=== PATIENT | female | born 1950 | race Caucasian/White ===

== ENCOUNTER → 2018-04-29 13:05 | Outpatient (CLI) | payer OTHER, SELFPAY ==
--- NOTE | 2018-04-29 | DI.CT.S_ITS ---
PROCEDURE: CT UE LT WO CON INDICATIONS: PRIMARY OSTEOARTHRITIS OF LEFT SHOULDER TECHNIQUE: Noncontrast 1-1.5 mm thick sections acquired from the acromioclavicular joint to the inferior scapula, with coronal and sagittal reformatting. COMPARISON: [facility], CR, XR SHOULDER 2+ VIEWS LEFT, 03/08/2018, 15:09. FINDINGS: Image quality: Excellent. Bones: Examination of left shoulder shows moderate acromioclavicular joint osteoarthritis with joint space narrowing, subchondral sclerosis and cyst formation. Moderate to severe osteophytic changes also noted involving glenohumeral joint with joint space narrowing, subchondral sclerosis and cyst formation, and prominent inferior marginal osteophyte formation. There is no acute fracture or dislocation. No gross lytic or blastic bony lesion. Left clavicle and left scapula are grossly intact. The visualized left ribs are intact. Soft tissues: There is suggestion of small to moderate joint effusion. No gross full-thickness rotator cuff tendon rupture. No suspicious soft tissue calcification. The visualized left lung field is clear. IMPRESSION: 1. Moderate to severe glenohumeral joint osteoarthritis and mild to moderate acromioclavicular joint osteoarthritis. No fracture or dislocation. No suspicious bony lesion. 2. Small to moderate glenohumeral joint effusion. No gross full-thickness rotator cuff tendon rupture. Dictated by: Lex Rodrigez M.D. on 04/29/2018 at 14:57 Approved by: Lex Rodrigez M.D. on 04/29/2018 at 14:59
== END ==
PROVIDERS: PCP Internal Medicine; Visit Provider Orthopaedic Surgery
DX: M19.012 Primary osteoarthritis, left shoulder (principal)
CPT/HCPCS: 73200

== ENCOUNTER → 2019-04-21 16:48 | Outpatient (CLI) | payer OTHER, SELFPAY ==
[2019-04-21 17:24] LABS: Bacteria Urine None Seen; WBC Urine None Seen (0-5/HPF)
[2019-04-21 17:57] LABS: Hematocrit 41.6 % (36-46); Mean Corpuscular HGB Conc 33.6 % (30-36); Platelet Count 377 X10^3/uL (150-400); Red Blood Cell Count 4.52 X10^6/uL (4.0-5.2); Red Cell Distribution Width 12.9 % (11.6-14.8); White Blood Cell Count 8.9 X10^3/uL (4.5-11.0)
[2019-04-21 18:01] LABS: Hemoglobin A1C% w Est Avg Glu 5.4 % (4.0-6.0)
[2019-04-21 18:07] LABS: BUN Creatinine Ratio 17.5 (6-22); Blood Urea Nitrogen 14 mg/dL (7-17); Carbon Dioxide 27 mmol/L (22-32); Chloride 102 mmol/L (98-107); Estimated Glomerular Filt Rate > 60.0 mL/min (>60); Glucose 87 mg/dL (80-110); HEMOLYSIS < 15 (0-50); Potassium 4.1 mmol/L (3.4-5.1); Sodium 138 mmol/L (137-145)
[2019-04-21 18:12] LABS: Transferrin 256 mg/dL (206-381)
[2019-04-21 18:26] LABS: Appearance Urine UA CLEAR; Bilirubin Urine UA NEGATIVE (NEGATIVE); Color Urine UA YELLOW; Glucose Urine UA NEGATIVE (Negative); Ketones Urine UA NEGATIVE (NEGATIVE); Leukocyte Esterase Urine UA NEGATIVE (NEGATIVE); Nitrite Urine UA NEGATIVE (Negative); Occult Blood Urine UA TRACE-LYSED (Negative); Protein Urine UA NEGATIVE (Negative); Specific Gravity Urine UA <=1.005 (1.000-1.035); Urobilinogen Urine UA 0.2 E.U./dL (0.2)
[2019-04-21 18:44] LABS: Culture Indicated Urine Cult Not Indicated; RBC Urine 0-1/HPF (0-5/HPF); Squamous Epithelial Cell Urine 0-1 /HPF (0-5/HPF)
== END ==
PROVIDERS: PCP Internal Medicine; Visit Provider Orthopaedic Surgery
DX: Z01.818 Encounter for other preprocedural examination (principal); E61.1 Iron deficiency; N39.0 Urinary tract infection, site not specified; R73.9 Hyperglycemia, unspecified
CPT/HCPCS: 36415; 80048; 81001; 83036; 84466; 85027; 93005

== ENCOUNTER 2019-05-22 06:23 | Inpatient (IN) | payer OTHER, SELFPAY ==
[2019-05-08 09:52] VITALS: BMI 22.9
[2019-05-22] VITALS (21 sets, daily range): BP systolic 104–166; BP diastolic 70–99; PULSE 70–102; RESP 14–20; TEMP 35.9–36.9; O2SAT 92–100; BMI 22.9
[2019-05-22] MEDS: PREGABALIN 75 MG CAPSULE PO (07:09)
[2019-05-22] MEDS: CELECOXIB 200 MG CAPSULE PO (07:09)
[2019-05-22] MEDS: ACETAMINOPHEN 325 MG TABLET 975 MG PO ×3 (07:09→20:18)
[2019-05-22] MEDS: LACTATED RINGERS 1,000 ML 42 ML IV (07:20)
--- NOTE | 2019-05-22 07:52 | PM.PREOP ---
Pre-operative Note Interval Note History & Physical reviewed/Exam performed by Physician: Yes Changes to H&P: No
--- NOTE | 2019-05-22 07:52 | PM.OP.1 ---
Operative Date/Time/Diagnoses Date of procedure: 05/22/19 Time of procedure: 10:00 Pre-op diagnosis: Left shoulder osteoarthritis Post-op diagnosis: same Procedure & Clinicians Procedure: Left total shoulder Same procedure as scheduled: Yes Indications: The patient has had progressively worsening left shoulder pain with radiographic changes consistent with arthritis. Non-operative management has failed and the patient has requested total shoulder replacement. The risks, benefits and alternatives to surgery were discussed with the patient prior to proceeding. Risks discussed included, but were not limited to, failure to relieve pain, stiffness, infection, nerve damage, deep venous thrombosis, pulmonary embolism, stroke, coma, heart attack, permanent paralysis and , as well as the potential need for eventual revision of the prosthetic. Surgeon: Ye Epps Insurance Case Manager: Carrol Sebastian Click Yes if Unassisted: No Anesthesia Type: General, Peripheral nerve block and Local Operative Notes Findings: Severe osteoarthritis with loose bodies and a large osteophyte on the humerus. Closure Type: primary Specimen(s): none sent Prosthetic devices, grafts, tissues, transplants, or devices: Implants used in this procedure were manufactured by the [employer] and included an Altivate short stem total shoulder system with a size 12 stem, a neutral neck and a 46 mm x 18 mm humeral head. In addition there was a 46 mm all polyethylene E plus pegged glenoid. Applied: implant(s) Estimated Blood Loss (mL): 150 Blood products transfused: none Procedure in detail: The patient was seen in the pre-operative area, where the patient identified the left shoulder as the operative site and this was marked with my initials. The patient received pre-operative antibiotics, underwent an interscalene block, and was taken to the operating room and placed on the operative table in the supine position. After satisfactory anesthesia, a full ?time out? was performed. The patient was repositioned in the ?beach chair? position using a dedicated positioner. All pressure points were well padded, and the knees were slightly bent to prevent tension on the sciatic nerves. The left arm was prepared from the fingers to the base of the neck with ChloroPrep in the usual fashion and draped through sterile drapes. An approximately 15 cm incision was created, starting at the clavicle above the coracoid process and extended towards the deltoid insertion. The deltopectoral interval was used to access the shoulder. The cephalic vein was taken medially. A self retaining retractor was placed. The upper centimeter of the pectoralis major tendon was released. The ?three sisters? were identified and cauterized. The axillary nerve was palpated and protected throughout the case. The biceps was released from its groove and tenodesed over the top of the pectoralis major tendon. The subscapularis was released from the lesser tuberosity with a subscapularis peel and tagged for later repair. The shoulder was dislocated and a cutting guide was used for the proximal humeral osteotomy in 30 degrees of retroversion. A starter Reamer was used followed by the cylindrical reamers. This continued in larger sizes in till cortical bite was achieved. Sequential broaching was then performed until a line to line fit with the Reamer occurred. A proximal humeral protector was then placed. We then removed the self-retaining retractor and placed retractors to access the glenoid. The subscapularis was released with a ?360 degree release? with care being taken to protect the axillary nerve with the inferior portion of this procedure. The remnant of labrum and biceps stump were removed. The appropriate size reamer was chosen with the glenoid sizer, and the guide pin placed. The glenoid was appropriately reamed. The guide for the peripheral holes was used and the center hole enlarged. The trial glenoid was placed with good stability. We then cemented the final implant into place after irrigating the peg holes and drying them with thrombin-soaked Gelfoam. We returned our attention to the humerus, a trial humeral head was applied and a trial reduction performed. Stability was checked with 50% posterior translation with spontaneous reduction, 45? external rotation at the side with the subscapularis held on the repaired position and 70? of internal rotation in the ?scarecrow position?. This was felt to be satisfactory and the appropriate implants were opened. Five holes were drilled along the humeral osteotomy and #2 Ethibond sutures placed for eventual subscapularis repair. The humeral prosthetic was impacted into the humerus. The humeral head was applied when the stem was still slightly proud and impacted to both seat the head and fully seat the stem. The joint was relocated one final time. The joint was irrigated and the subscapularis repaired to the previously placed sutures using Talat-Panda sutures. The top of the subscapularis was closed to the leading edge of the supraspinatus with a figure of 8 #2 TiCron to close the rotator interval. A deep drain was placed and brought out supero-laterally. The deltopectoral interval was closed with interrupted 0 Vicryl. The subcutaneous layer was closed with 3-0 Vicryl, and the skin with a running 3-0 V-Lock suture and SteriStrips. An Aquacel Ag dressing was applied, the patient?s arm was placed in a sling, and the patient was taken to recovery having tolerated the procedure well. Complications: none Post-operative Condition: stable Disposition: PACU Plan for aftercare: The patient will be maintained on a standard total shoulder replacement protocol with passive range of motion limited to 90 degrees forward flexion, 0 degrees external rotation at the side, 0 degrees abduction and internal rotation to the body. The patient will receive aspirin and sequential compression devices for DVT prophylaxis. The patient will be discharged home when safe for the home environment, likely tomorrow.
[2019-05-22] MEDS: MIDAZOLAM 2 MG/2 ML VIAL IV (07:54)
[2019-05-22] MEDS: fentaNYL 100 MCG/2 ML INJ 50 MCG IV (07:55)
[2019-05-22] MEDS: CEFAZOLIN 2 GM/100 ML FROZ.PIGGY IV (08:07)
[2019-05-22] MEDS: TRANEXAMIC ACID 1,000 MG VIAL 1000 MG INJ ×2 (08:20→09:38)
--- NOTE | 2019-05-22 08:20 | SUR.PREOP ---
Block start time 0754. Monitoring initiated and maintained throughout procedure. Oxygen and medications given per anesthesiologist instructions. Patient remained stable throughout procedure, no adverse reactions noted. Block end time 0803.
--- NOTE | 2019-05-22 08:38 | SUR.OPER ---
Beach chair with Schlein shoulder positioner. Lower body on padded OR bed. Head in foam padded head cradle, secured with straps. Non-operative arm secured <90 degrees abduction. Pillow under knees. Safety belt at thigh. Cloth tape over blanket over lower legs.
[2019-05-22] MEDS: THROMBIN (RECOMBINANT) 5,000 UNIT VIAL 5000 UNIT TOP (08:45)
[2019-05-22] MEDS: BUPIVACAINE 0.5% W/ EPI (PF) VIAL 30 ML INJ (08:45)
--- NOTE | 2019-05-22 10:15 | DI.RAD.S_ITS ---
PROCEDURE: XR SHOULDER LT 1V INDICATIONS: post op total shoulder TECHNIQUE: One views of the shoulder were acquired. COMPARISON: Left shoulder radiographs 03/01/2019, and left shoulder CT 04/29/2018. FINDINGS: Post left shoulder arthroplasty which is in the expected location. No fracture. Mild acromioclavicular joint degenerative change. Postoperative soft tissue gas. IMPRESSION: Satisfactory appearance of the new left shoulder arthroplasty. Dictated by: David Talavera M.D. on 05/22/2019 at 11:24 Approved by: David Talavera M.D. on 05/22/2019 at 11:26
[2019-05-22] MEDS: LACTATED RINGERS 1,000 ML 125 ML IV (13:16)
[2019-05-22] MEDS: OXYCODONE IR 10 MG TABLET PO ×3 (13:36→20:03)
--- NOTE | 2019-05-22 17:33 | PT.IIE ---
Current Diagnoses Primary osteoarthritis, right shoulder (05/22/19) Surgery Performed Operation Date: 05/22/19 07:45 Actual Procedures p Total Shoulder Arthroplasty(Left) - Ye Epps MD Surgical History (Last Updated 05/08/19 @ 10:04 by Saloni Kearney, RN) History of arthroplasty of right shoulder (Acute 07/29/15) History of total right hip arthroplasty (Acute ~08/2018) Hx of reduction mammoplasty (Acute) Hx of vein stripping (Acute) Medical History (Last Updated 05/08/19 @ 09:59 by Saloni Kearney RN) Depression (Acute) Headache (Acute) Hx of ectopic (Acute) IBS (irritable colon syndrome) (Acute) Mood disorder (Acute) PTSD (post-traumatic stress disorder) (Acute) Physical Therapy Inpatient Evaluation/Re-Eval M1 PT/OT-IP Prior Functional Status Start: 05/22/19 14:36 Freq: NEEDED Status: Active Protocol: Document 05/22/19 17:17 AW (Rec: 05/22/19 17:33 AW [email or web address]) Medical Review Prior Functional Status Medical History Reviewed Yes Diet/Fluid Consistency Mechanical Soft Communication Able to make needs known Mobility and Gait Independent without assistive device Activities of Daily Living and IADL's Independent Social History Household Members none Living Arrangements House Number of Floors (Floors) Two Floors Number of Stairs To Enter/Railing? 1 [place]ARLEY with no rail. 14 steps to second level with R railing ascending Home Environment Standard Height Toilet,Walk in Shower,Built-In Shower Seat Home Equipment Grab Bars In Shower Employment Status Retired M2 PT-IP Current Condition Start: 05/22/19 14:36 Freq: NEEDED Status: Active Protocol: Document 05/22/19 17:17 AW (Rec: 05/22/19 17:33 AW [email or web address]) Physical Therapy Current Condition Current Condition Evaluation Date 05/22/19 Treatment Diagnosis s/p left TSA; decreased independence with ADL's Onset Date 05/22/19 Precautions Shoulder Precautions Sling,PROM,Internal Rotation to Body,No External Rotation, No Abduction,Forward Flexion to 90 degrees,Pendulums Weight Bearing Status Weight Bearing Status Full Weight Bearing M3 PT-IP Subjective Start: 05/22/19 14:36 Freq: NEEDED Status: Active Protocol: Document 05/22/19 17:17 AW (Rec: 05/22/19 17:33 AW [email or web address]) Subjective Physical Therapy Visit Type Type Initial Evaluation Visit Start Time 14:42 Visit Stop Time 15:21 Total Visit Minutes 39 Number of INVESTIGATIONS CHIEF Visits 0 Physical Therapy Visit Comments Patient Comments Pt has been up to bathroom several times but is willing to work with therapy Patient Goals Pt hopes to discharge directly to home. Therapy Pain Assessment Pain When Pain Assessed During Mobility Pain Present Pain Present Denied Pain M4 PT-IP Mobility and Gait Start: 05/22/19 14:36 Freq: NEEDED Status: Active Protocol: Document 05/22/19 17:17 AW (Rec: 05/22/19 17:33 AW [email or web address]) PT-Bed Mobility Assessment Supine to Sit Supine to Sit Standby Assistance Sit to Supine Sit to Supine Standby Assistance Scooting Scooting to Edge of Bed Standby Assistance Scooting Up and Down in Bed Standby Assistance PT-Transfer Assessment Sit to and From Stand Sit to and from Stand Standby Assistance Equipment Transfer Assistive Device Gait Belt Orthotic/Prosthetic Devices or Brace: Yes Transfers Transfer Destination Bed Transfer Technique pt ambulated without assistive device Transfer Ability Level of Assist Standby Assistance Comments Mobility Comments Pt required occasional cues to avoid shoulder elevation, but otherwise required no more than SBA for all mobility. Gait Assessment Gait Gait Assistance Required: Standby Assistance Distance (Feet) 250 Able to Maintain Weight Bearing Status Yes During Gait Assistive Devices Assistive Device Gait Belt Orthotic/Prosthetic Devices or Brace: Yes Gait Deviations General Gait Pattern Decreased Stride Length, Decreased Feet Clearance Factors Limiting Gait Function Factors Limiting Gait Function Decreased Activity Tolerance Comments Gait Comments Pt ambulated ~250 feet without AD SBA. She was able to turn and nod her head, appropriately identify and navigate obstacles, and generally demonstrated good safety awareness. Stair Climbing Assessment Evaluation Level of Assist On Stairs Standby Assistance Devices Stair Climbing Assistive Devices Right Railing Technique/Endurance Stair Climbing Direction Ascend and Descend Stair Climbing Technique Step Over Step Number of Steps Climbed 3 Query Text: Stair Climbing Set # Repetitions (reps) 3 Comments Stair Climbing Comments Pt practiced descending with both step-to and step-over- step pattern. She was safe with both, requiring no more than SBA PT-Balance Assessment Sitting Balance and Reactions Static Sitting Balance Ability Normal Dynamic Sitting Balance Ability Normal Standing Balance and Reactions Static Standing Balance Ability Normal Dynamic Standing Balance Ability Normal Device Used none M5 PT-IP Objective Assessments Start: 05/22/19 14:36 Freq: NEEDED Status: Active Protocol: Document 05/22/19 17:17 AW (Rec: 05/22/19 17:33 AW [email or web address]) Orientation Orientation/Cognition Level of Alertness Alert Orientation Name,Day of Week,Place, Situation Language Function Ability No Deficits Noted Safety Awareness Understands Safety Issues Memory Description No Deficits Noted Comments Pt slightly groggy at time of evaluation from anesthesia but able to attend to task. Gross Range of Motion Upper Extremity ROM Assessment Left Impaired Lower Extremity ROM Assessment Within Functional Limits Strength Upper Extremity Strength Assessment Left Impaired Lower Extremity Strength Assessment Within Functional Limits Comments Strength Comments BLE grossly 5/5 Coordination Assessment Gross Coordination Gross Coordination WNL Sensation Assessment Sensation Gross Sensation Left UE Impaired Light Touch Impaired Comments Sensation Comments Pt with dull light touch sensation of LUE. Pt reported increased tingling with mobility. M6 PT-IP Treatment Start: 05/22/19 14:36 Freq: NEEDED Status: Active Protocol: Document 05/22/19 17:17 AW (Rec: 05/22/19 17:33 AW [email or web address]) Physical Therapy Treatment Education Education Provided Precautions,Weight Bearing Status,Post-Op Packet,Safety Brace Education [place],Patient Other Treatments Other Treatment Performed Pt educated on proper fit of shoulder sling using mirror for visual feedback. Pt able to adjust sling for comfort. PT demonstrated elbow, wrist, and hand ROM as well as pendulums but did not feel it safe for pt to practice due to poor awareness of/sensation in LUE. Will demonstrate and practice at next session. M7 PT-IP Assessment and Plan Start: 05/22/19 14:36 Freq: NEEDED Status: Active Protocol: Document 05/22/19 17:17 AW (Rec: 05/22/19 17:33 AW [email or web address]) PT Summary Assessment and Plan Potential Rehabilitation Potential Excellent Status of Condition at Evaluation Evolving Summary Impairments Pain,ROM,Strength,Sensation, Bed Mobility,Transfers,Gait, Activity Tolerance Assessment Summary Pt is an active 68 yo woman with history of right TSA who was seen on POD0 following left TSA. PLOF: Pt was independent in all regards. CLOF: Pt required SBA for all mobilities and verbal/tactile cues to avoid shoulder elevation. She will benefit from further PT to review shoulder precautions, sling management, and ROM exercises. PT recommends discharge to home with outpatient PT when medically cleared. Goals Bed Mobility Goal Independent Transfer Goal Independent Gait Goal Independent Gait Distance 300 Other Goals - up/down 1 step without railing - up/down 14 steps with R rail ascending Days to Meet Goals 1 Frequency of Treatment Frequency Of Treatment Twice a Day Treatment Plan Physical Therapy Treatment Plan Bed Mobility Training,Transfer Training,Gait Training, Therapeutic Exercise,Balance Retraining,Post Op Education, Discharge Planning,Hot or Cold Pack,Neuromuscular Re-ed, Coordination Retraining,Manual Therapy Other Recommendations and Next Treatment review shoulder precautions, Focus sling management, and ROM exercises Recommendations To Nursing Amount of Assist Needed Standby Assistance Discharge Recommendations PT Discharge Recommendations Home,Outpatient PT
[2019-05-22] MEDS: HYDROMORPHONE 0.5 MG INJ IV (18:46)
[2019-05-22] MEDS: ONDANSETRON 4 MG ODT PO (20:03)
[2019-05-22] MEDS: ASPIRIN EC 81 MG TABLET PO (20:10)
[2019-05-22] MEDS: DOCUSATE 100 MG CAPSULE PO (20:18)
[2019-05-22] MEDS: lamoTRIgine 100 MG TABLET 200 MG PO (20:21)
[2019-05-23 00:40] VITALS: BP 145/87; PULSE 72; RESP 16; TEMP 36.9; O2SAT 96
[2019-05-23] MEDS: OXYCODONE IR 10 MG TABLET PO ×4 (01:06→14:40)
--- NOTE | 2019-05-23 02:37 | PC.NURSE ---
Addendum entered by Satnam He R.N. 05/23/19 05:48: 0545: Pt having occasional nausea with vomiting. Unable to medicate her with Oxycodone due to nausea. Medicated for pain with Dilaudid 0.5mg IV at 0525. Original Note: Staff Auditor Note: 0030: Awake, assisted up to bathroom with sba. Steady on her feet. IV in place in rt wrist. Dressing to lt shoulder cdi; arm sling in place. Fresh ice to lt shoulder. Vital signs stable.
[2019-05-23] MEDS: HYDROMORPHONE 0.5 MG INJ IV ×2 (03:25→05:25)
[2019-05-23] MEDS: ZOLPIDEM 5 MG TABLET 10 MG PO (03:25)
[2019-05-23] MEDS: ONDANSETRON 4 MG ODT PO ×3 (03:25→11:23)
[2019-05-23 04:15] VITALS: BP 146/89; PULSE 73; RESP 16; TEMP 36.8; O2SAT 96
[2019-05-23] MEDS: LACTATED RINGERS 1,000 ML 125 ML IV (05:06)
[2019-05-23] MEDS: ONDANSETRON 4 MG/2 ML INJ IV (05:07)
[2019-05-23 05:45] LABS: Hematocrit 35.7 % (36-46); Hemoglobin 12.1 g/dL (12.0-16.0); Mean Corpuscular HGB Conc 33.9 % (30-36); Mean Corpuscular Hemoglobin 30.9 PG (26-34); Mean Corpuscular Volume 91.4 fL (80-100); Platelet Count 311 X10^3/uL (150-400); Red Blood Cell Count 3.91 X10^6/uL (4.0-5.2); Red Cell Distribution Width 13.1 % (11.6-14.8); White Blood Cell Count 16.9 X10^3/uL (4.5-11.0)
--- NOTE | 2019-05-23 07:42 | PM.DS.1 ---
History of Present Illness History of Present Illness Date Patient Seen: 05/23/19 Time Patient Seen: 07:42 Chief complaint: 20631 Left Total Shoulder Arthroplasty Narrative: History and physical are contained in the chart in a previously completed note. Please refer to that note for this information. Discharge Providers Provider Date of admission: 05/22/19 06:23 Discharge Date: 05/23/19 Primary care physician: Gigi Whiting MD Consults: 05/22/19 12:08 Consult to Discharge Planning Routine Comment: Consult to Physical Therapy Evaluate & Treat Comment: pendulums, PROM 0 ER, 90 FF, IR to body, 0 abd Physician Instructions: Evaluate and Treat Discharge provider: Ye Epps MD Summary Hospital Course Discharge Diagnosis: 1. Left shoulder osteoarthritis 2. Mild post hemorrhagic anemia Hospital Course: The patient was admitted to the hospital and taken directly to the operating room on May 22, 2019. She underwent a left total shoulder replacement without complications. On postoperative day 1 she was stable and ready for discharge home. Status at Discharge Cognitive/behavioral status at discharge: oriented Functional status at discharge: independent ambulation Overall status at discharge: patient is progressing back to baseline Time Spent with Patient Time spent: Less than 30 minutes Exam Vital Signs (past 8 hours): - 05/23/19 00:40 05/23/19 04:15 Temperature 98.5 F 98.2 F Pulse Rate 72 73 Respiratory Rate 16 16 Blood Pressure 145/87 H 146/89 H Pulse Oximetry 96 96 Oxygen Delivery Method Room Air Oxygen Flow Rate 0 Narrative Exam Narrative: Left shoulder wound is dressed with no drainage on the bandage. Light touch is intact in the radial, ulnar, median, muscular cutaneous and axillary nerve distribution. She can extend her thumb, abduct her thumb, abduct her fingers and can fire her biceps and deltoid. Objective Labs Result Diagrams: 05/23/19 05:15 Labs: Laboratory Results - last 24 hr 05/23/19 05:15 WBC 16.9 H RBC 3.91 L Hgb 12.1 Hct 35.7 L MCV 91.4 MCH 30.9 MCHC 33.9 RDW 13.1 Plt Count 311 Discharge Plan Discharge Plan Patient Disposition: Home Discharge Med Rec/Prescriptions Prescriptions: New acetaminophen 325 mg Tablet 975 mg PO TID 30 Days Qty: 270 RF: 0 aspirin 81 mg Tablet,Delayed Release (Dr/Ec) 81 mg PO BID 42 Days Qty: 84 RF: 0 ondansetron 4 mg Tablet,Disintegrating 4 mg PO Q4HR PRN (Reason: Nausea And Vomiting) Qty: 10 RF: 0 oxycodone 5 mg Tablet 5 mg PO Q4HR Qty: 40 RF: 0 Continued meloxicam 15 mg tablet 15 mg PO DAILY RF: 0 alprazolam [Xanax] 0.25 mg tablet 0.5 mg PO BID-TID PRN (Reason: Anxiety) RF: 0 estradiol 2 mg tablet 2 mg PO DAILY RF: 0 progesterone micronized 100 mg capsule 100 mg PO QAM RF: 0 cyclobenzaprine 10 mg tablet 5 mg PO TID PRN (Reason: Muscle Spasm) RF: 0 zolpidem 10 mg tablet 10 mg PO BEDTIME PRN (Reason: Sleep) RF: 0 bupropion HCl 300 mg tablet extended release 24 hr 300 mg PO QDAY Qty: 90 RF: 3 bupropion HCl [Wellbutrin XL] 150 mg tablet extended release 24 hr 150 mg PO QDAY Qty: 90 RF: 3 lamotrigine 200 mg tablet 200 mg PO BID RF: 0 Discontinued hydrocodone-acetaminophen [Vicodin] 5-300 mg tablet 1 - 2 tab PO Q6HP PRN (Reason: Pain) Qty: 0 RF: 0 Follow up/Referrals: Gigi Whiting MD [Primary Care Provider] - Ye Epps MD [Physician] - 2 Weeks Provider Discharge Instructions Diet: Diet as Tolerated and Regular Activity: You may use your left hand in front of your body below shoulder level. Lift no more than 1 lb with the left arm. Cold/Heat Therapy: Apply ice to the left shoulder for 15 minutes every hour as needed for pain control. Skin/Wound/Dressing Care Report to your healthcare provider any signs of infection, such as:: chills, fever, night sweats, increased pain, unusual drainage and unusual redness Dressing: You may shower with the dressing in place. Leave the dressing in place until your postoperative follow-up. If the central strip of the dressing becomes saturated with either water or blood, please call the office to have it changed. Visit Report/Discharge Packet Instructions: DI for Shoulder Replacement Stand Alone Forms: Surgery Discharge Discharge Data Primary Care Provider: Gigi Whiting V Quality VTE Deep Vein Thrombosis/Pulmonary Embolism Present on Admission: No
[2019-05-23] MEDS: ACETAMINOPHEN 325 MG TABLET 975 MG PO ×2 (07:45→14:40)
[2019-05-23 07:56] VITALS: BP 140/86; PULSE 75; RESP 16; TEMP 36.6; O2SAT 95
--- NOTE | 2019-05-23 08:34 | PC.NURSE ---
Shift summary: Awake and alert, oriented X3. C/O 7/10 pain in L shoulder. Medicated with ODT Zofran, 10 mg Oxycodone and scheduled Tylenol. Sling to LUE in place, supported with pillows. CMS+. Fingers warm and pink, radial pulse+, cap refill <2 sec. Fresh ice pack placed to L shoulder. Hemovac compressed and intact. Lungs CTA, HRR. BT+, hypoactive. Denies passing flatus. Wanted to sleep for a bit, and will call when she's ready for breakfast or other intervention. Call light and belongings within reach, bed alarm on.
--- NOTE | 2019-05-23 11:12 | PT.IPTN ---
Current Diagnoses Primary osteoarthritis, right shoulder (05/22/19) Surgery Performed Operation Date: 05/22/19 07:45 Actual Procedures p Total Shoulder Arthroplasty(Left) - Ye Epps MD Physical Therapy Treatment Note M2 PT-IP Current Condition Start: 05/22/19 14:36 Freq: NEEDED Status: Active Protocol: Document 05/22/19 17:17 AW (Rec: 05/22/19 17:33 AW [id number]) Physical Therapy Current Condition Current Condition Evaluation Date 05/22/19 Treatment Diagnosis s/p left TSA; decreased independence with ADL's Onset Date 05/22/19 Precautions Shoulder Precautions Sling,PROM,Internal Rotation to Body,No External Rotation, No Abduction,Forward Flexion to 90 degrees,Pendulums Weight Bearing Status Weight Bearing Status Full Weight Bearing M3 PT-IP Subjective Start: 05/22/19 14:36 Freq: NEEDED Status: Active Protocol: Document 05/23/19 10:45 CLB (Rec: 05/23/19 11:54 CLB [id number]) Subjective Physical Therapy Visit Type Type Treatment Note Visit Start Time 10:45 Visit Stop Time 11:12 Total Visit Minutes 27 Number of SUPERVISOR CD AREA Visits 1 Physical Therapy Visit Comments Patient Comments Pt willing to get up with therapy. Patient Goals Pt hopes to discharge directly to home. Therapy Pain Assessment Pain When Pain Assessed During Mobility Pain Present Pain Present Denied Pain M4 PT-IP Mobility and Gait Start: 05/22/19 14:36 Freq: NEEDED Status: Active Protocol: Document 05/23/19 10:45 CLB (Rec: 05/23/19 11:54 CLB [id number]) PT-Bed Mobility Assessment Supine to Sit Supine to Sit Standby Assistance Sit to Supine Sit to Supine Standby Assistance Scooting Scooting to Edge of Bed Standby Assistance Scooting Up and Down in Bed Standby Assistance PT-Transfer Assessment Sit to and From Stand Sit to and from Stand Standby Assistance Transfers Transfer Destination Bed Transfer Technique pt ambulated without assistive device Transfer Ability Level of Assist Standby Assistance Comments Mobility Comments Pt is SBA for all bed mobility and transfers. Gait Assessment Gait Gait Assistance Required: Standby Assistance Distance (Feet) 250 Able to Maintain Weight Bearing Status Yes During Gait Assistive Devices Assistive Device Gait Belt Orthotic/Prosthetic Devices or Brace: Yes Gait Deviations General Gait Pattern Decreased Stride Length, Decreased Feet Clearance Factors Limiting Gait Function Factors Limiting Gait Function Decreased Activity Tolerance Comments Gait Comments Pt ambulated ~250ft w/o AD SBA . Pt was able to ambulate while talking, turning head with steady gait and good safety awareness. M5 PT-IP Objective Assessments Start: 05/22/19 14:36 Freq: NEEDED Status: Active Protocol: Document 05/22/19 17:17 AW (Rec: 05/22/19 17:33 AW [id number]) Orientation Orientation/Cognition Level of Alertness Alert Orientation Name,Day of Week,Place, Situation Language Function Ability No Deficits Noted Safety Awareness Understands Safety Issues Memory Description No Deficits Noted Comments Pt slightly groggy at time of evaluation from anesthesia but able to attend to task. Gross Range of Motion Upper Extremity ROM Assessment Left Impaired Lower Extremity ROM Assessment Within Functional Limits Strength Upper Extremity Strength Assessment Left Impaired Lower Extremity Strength Assessment Within Functional Limits Comments Strength Comments BLE grossly 5/5 Coordination Assessment Gross Coordination Gross Coordination WNL Sensation Assessment Sensation Gross Sensation Left UE Impaired Light Touch Impaired Comments Sensation Comments Pt with dull light touch sensation of LUE. Pt reported increased tingling with mobility. M6 PT-IP Treatment Start: 05/22/19 14:36 Freq: NEEDED Status: Active Protocol: Document 05/23/19 10:45 CLB (Rec: 05/23/19 11:54 CLB [id number]) Physical Therapy Treatment Exercises Exercises Shoulder Pendulums,Elbow Flexion/Extension,Wrist ROM, Hand ROM Education Education Provided Precautions,Weight Bearing Status,Post-Op Packet,Safety Brace Education [place],Patient Other Treatments Other Treatment Performed Pt educated on proper fit of shoulder sling. Pt able to adjust sling for comfort. PT demonstrated elbow, wrist, and hand ROM as well as pendulums . M7 PT-IP Assessment and Plan Start: 05/22/19 14:36 Freq: NEEDED Status: Active Protocol: Document 05/23/19 10:45 CLB (Rec: 05/23/19 11:54 CLB [id number]) PT Summary Assessment and Plan Potential Status of Condition at Evaluation Evolving Summary Impairments Pain,ROM,Strength,Sensation, Bed Mobility,Transfers,Gait, Activity Tolerance Assessment Summary Pt able to perform all mobility SBA. Pt is steady with gait. Pt demonstrated some difficulty donning sling but was walked through the process. Pt able to recall 3/3 precautions at end of session after going over them. Goals Bed Mobility Goal Independent Transfer Goal Independent Gait Goal Independent Gait Distance 300 Other Goals - up/down 1 step without railing - up/down 14 steps with R rail ascending Days to Meet Goals 1 Frequency of Treatment Frequency Of Treatment Twice a Day Treatment Plan Physical Therapy Treatment Plan Bed Mobility Training,Transfer Training,Gait Training, Therapeutic Exercise,Balance Retraining,Post Op Education, Discharge Planning,Hot or Cold Pack,Neuromuscular Re-ed, Coordination Retraining,Manual Therapy Other Recommendations and Next Treatment review shoulder precautions, Focus sling management, and ROM exercises Recommendations To Nursing Amount of Assist Needed Standby Assistance Discharge Recommendations PT Discharge Recommendations Home,Outpatient PT
[2019-05-23 11:15] VITALS: BP 145/94; PULSE 82; RESP 16
[2019-05-23] MEDS: ASPIRIN EC 81 MG TABLET PO (11:22)
[2019-05-23 12:32] VITALS: BP 145/94; PULSE 90; RESP 18; TEMP 36.7; O2SAT 96
--- NOTE | 2019-05-23 14:40 | CM.DANOTE ---
DCP/Assessment: Reviewed chart. [facility] for elective left TSA performed on 05-22-[address] pEps. PCP is Dr. Whiting. Primary payor is 1)[facility]. Met with patient explained CM/SW role. Patient reports that she plans to d/c home today. Patient resides alone in [place], [place]. Patient indicates that she is unable to drive to/from outpatient therapy and would like home health. Patient has previously had home health with [facility] and would like that agency again. Spoke with RN/Reese requesting that she put call out to Dr. Epps for home health. Order obtained for HH for PT/OT. Placed call to [facility] spoke with Merlin. He reports that referral accepted. Faxed all needed information to [phone]. Patient provided with brochure for [facility] and no additional needs identified. P: Home with [facility] . NIRAV Babb Discharge Planning/Care Management Discharge Assessment Start: 05/23/19 14:37 Freq: Status: Active Protocol: Document 05/23/19 14:37 KJS (Rec: 05/23/19 14:40 KJS [id number]) Discharge Planning Assessment Assigned Supreme Court Justice NIRAV Babb Advance Directives? Yes Advance Directives on File No History Provided By Patient,Medical Record Prior Living Arrangements House Household Members none Type of transporation used prior to Drives own vehicle admit Independent with ADL's Yes Is patient alert and oriented? Yes Caregiver for Another No Patient/Family Preference Home with Home Health Comment Patient and MD requesting patient go home with Barriers to Discharge No Transportation Arrangement Friend to provide transport. Referrals Initiated Home Health If patient plan is home with home health Yes : Has signed face to face form been completed? SNF/HH Preference [facility] Whiteboard Updated in Patient Room with Yes name and ext. # of Supreme Court Justice Review Status In Process Next Review Type Continued Stay Review Pre-Anesthesia Assessment Start: 05/08/19 09:52 Freq: Status: Complete Protocol: Document 05/08/19 09:52 CAB (Rec: 05/08/19 10:38 CAB [id number]) Pre-Anesthesia Assessment Patient Information Reviewed Via Phone Assessment Assessment Completed With Patient Diagnostic Results BMP/CMP,CBC,EKG,Urinalysis Comment Labs/EKG @ 04/21/19 Primary Care Provider Gigi Whiting Seen Specialist in Last 12 Months Yes Specialist Seen Orthopedist,Other Primary Language [place] Screen Printer Required No Height 177.8 cm Weight 72.575 kg Body Mass Index (BMI) 22.9 Hearing Ability Normal Visual Assist Contacts,Glasses Dentition Type Teeth, Natural Present Barriers to Learning None Other Aids No Hx Anesthesia Reactions No Hx Family Anesthesia Reaction No Hx Malignant Hyperthermia No Hx Blood Transfusions No Anesthesia Review Requested No alcohol intake current alcohol intake frequency holidays/special occasions only Smoking Status Former smoker Tobacco type cigarettes how long ago did patient quit smoking Quit 1997 Substance Use Type does not use Pain Present Pain Reported Musculoskeletal Symptoms Abnormal Gait,Back Pain, Difficulty Walking,Joint Pain, Limited Range of Motion,Neck Pain,Post op Pain,Radiating Pain into Limb History of Falling (Recent or History of No ) Patient is completely paralyzed or No completely immobile Mental Status Oriented to own ability Is patient on oxygen? No Does patient have ORELLANA/SOB No Hx Sleep Apnea No Currently Taking a Beta Sarthak No Can You Climb a Flight of Stairs Without Yes SOB Hx Chest Pain No Hx SOB No Hx Syncope or Dizziness No Anti-Coagulant Therapy No Has a Icing Coater No Cardiac Testing No Hx Pacemaker/ICD No Pacemaker Rep Required? No Cardiac Clearance Received Not Applicable Diet Type At Home Regular dysphagia No Comment Does not meat, chicken, pork Urinary Catheter Present No Hx Urinary Self Catheterization No Diabetes No Patient No Lactating No Hx Drug Resistant Organism No Presence of External or Internal Medical Yes: Hardware in right Devices shoulder, right hip Have you traveled outside the [facility] States in the last 30 days? Marital Status Single Lives With none Prior Living Arrangements House Number of Floors (Floors) Two Floors Support System Friend(s) Does the Patient Have Assistance After Yes Surgery Patient Discharge Plan Description Return Home Comment Pt advised 1-2 day length of stay per surgeon, friend to stay, assist DC Feels Safe in Current Environment Yes Been Physically Hurt or Threatened By a No Person in Current Environment Do you have thoughts of harming yourself None or others? Are you currently considering suicide? No Do you have a plan to hurt yourself or No Plan others? Do You Have Any Spiritual Beliefs That No May Affect Your HC Choices? Do You Have Any Cultural Practices That No May Affect Your HC Choices? Who Can We Speak to About Patient's Care Family, friends Identifying Code for Release of Patient Declines to issue Information Health Care Proxy/Next of Kin Amando Velardekeegan (friend) Health Care Proxy Emergency Contact Name Amando Gutierrez (friend) Emergency Contact Advance Directives? Yes: U Advance Directives on File No Requested Patient Bring Advanced Yes Directives DOS Power of Independent Distributor Yes Power of Independent Distributor Name Amando Gutierrez (friend) Power of Independent Distributor PAC Instructions Do not shave/clip surgical site,Durable medical equipment ,Medications to take/avoid, Nasal antibiotic,No ETOH/ petroleum product on skin DOS, NPO,Post-op transportation,Pre -op antibiotic,Sturdy shoes/ comfortable clothes,Do not bring valuables and remove jewelry
--- NOTE | 2019-05-23 16:20 | PC.NURSE ---
DC note: I went over DC paperwork & instructions with her. She stated concern about being prescribed Oxycodone 5 mg q4h prn, as she states that here at the hospital she has been requiring oxycodone 10 mg q3 hours. Liset day shift RN called Dr Epps to explain patient & nurse concerns. He said he did not want to change the prescription. While I was going over the DC paperwork with her, she became upset when discussing the Oxycodone, she said well that won't be enough-I will just call him myself-It pains me to do this but I will. She also stated concern about nausea, and that she did not think the 10 tabs of Zofran would be enough. She then tried to call office, saying she only was able to leave a message on the nurse triage line and that she would have Dm (her ride home) stop by the office to see if she could speak to Dr Epps in person. Patient told me she had no other concerns or questions prior to leaving hospital. Patient able to dress with min assist. MUSAE in sling, krista CDI. IV to RFA DC'd, pressure krista applied. All DC paperwork, prescription and belongings with her, [employer] assisting her to [address] entrance where Dm drove patient away via private car.
== END 2019-05-23 16:20 | disposition home health service (06) | DRG 483 ==
PROVIDERS: Admitting Provider Orthopaedic Surgery; PCP Internal Medicine; Visit Provider Orthopaedic Surgery
PROC: 0RRK0JZ Replacement of Left Shoulder Joint with Synthetic Substitute, Open Approach (ICD-10-PCS; CPT 23472; principal; 2019-05-22 07:45)
DX: M19.012 Primary osteoarthritis, left shoulder (principal); D62 Acute posthemorrhagic anemia; E78.5 Hyperlipidemia, unspecified; Z87.891 Personal history of nicotine dependence; M24.012 Loose body in left shoulder; M25.712 Osteophyte, left shoulder
CPT/HCPCS: 36415; 64450; 73020; 85027; 94762; 97116; 97161; 97530; C1776; J0690; J1100; J1170; J2250; J2405; J2704; J3010

== ENCOUNTER → 2019-07-24 13:40 | Outpatient (CLI) | payer MEDICARE, SELFPAY ==
[2019-05-22 14:26] VITALS: BMI 22.9
--- NOTE | 2019-07-24 | DI.CT.S_ITS ---
PROCEDURE: CT UE LT WO CON INDICATIONS: Presence of left artificial shoulder joint. Left shoulder pain TECHNIQUE: Noncontrast 1-1.5 mm thick sections acquired from the acromioclavicular joint to the inferior scapula, with coronal and sagittal reformatting. COMPARISON: [facility] [place], [place], XR SHOULDER 2+ VIEWS LEFT, 07/04/2019, 11:51. left shoulder [address] dated 04/29/18 from [facility] FINDINGS: Image quality: Diagnostic. Bones: Postoperative changes related to a left shoulder arthroplasty are present. A metallic prosthetic components appear to be appropriately seated. No periprosthetic fractures or lucencies are appreciated. However, small ossific/calcific densities are identified overlying the superior margin of the humeral head prosthetic component. Moderate degenerative changes of the acromioclavicular joint are present. Soft tissues: The soft tissues of the left shoulder appear to be within normal limits. There may be a small glenohumeral joint effusion. No significant atrophy is appreciated involving the rotator cuff muscles. The included portions of the left lung and left axilla appear to be within normal limits. IMPRESSION: 1. Expected post surgical changes related to a left shoulder arthroplasty. No acute fractures are appreciated. 2. Small ossific/calcific densities along the superior aspect of the humeral head prosthetic are of uncertain origin and may represent residual foreign bodies from the prior surgery. However, a subacute fracture is difficult to exclude. 3. Moderate degenerative changes of the acromioclavicular joint. Dictated by: Ricardo Hayward M.D. on 07/24/2019 at 14:57 Approved by: Ricardo Hayward M.D. on 07/24/2019 at 15:01
== END ==
PROVIDERS: PCP Internal Medicine; Visit Provider Orthopaedic Surgery
DX: M25.512 Pain in left shoulder (principal); Z96.612 Presence of left artificial shoulder joint
CPT/HCPCS: 73200; Q9967

== ENCOUNTER → 2020-05-24 12:37 | Outpatient (CLI) | payer MEDICARE, SELFPAY ==
[2019-05-22 14:26] VITALS: BMI 22.9
== END ==
PROVIDERS: PCP Internal Medicine; Referring Provider Internal Medicine; Visit Provider Internal Medicine
DX: Z78.0 Asymptomatic menopausal state (principal)
CPT/HCPCS: 77080

== ENCOUNTER → 2023-02-25 14:44 | Outpatient (CLI) | payer MEDICARE, SELFPAY ==
[2021-09-26 14:14] VITALS: BMI 22.9
--- NOTE | 2023-02-25 14:50 | DI.RAD.S_ITS ---
PROCEDURE: XR KNEE LT 3V INDICATIONS: knee arthritis TECHNIQUE: 3 views of the knee were acquired. COMPARISON: [facility] [place], JORDI, XR KNEE ARTHRITIC SERIES , 07/19/2018, 14:43. FINDINGS: Bones: No acute fracture or dislocation identified. Severe lateral compartment joint space narrowing and spurring, mild medial and patellofemoral compartment narrowing and spurring. Soft tissues: No joint effusion. No suspicious soft tissue calcifications. IMPRESSION: Degenerative changes of the knee, severe at the lateral compartment. Dictated by: Lake Smith M.D. on 02/25/2023 at 17:49 Approved by: Lake Smith M.D. on 02/25/2023 at 17:53
--- NOTE | 2023-02-25 14:50 | DI.RAD.S_ITS ---
PROCEDURE: XR KNEE RT 3V INDICATIONS: knee arthritis TECHNIQUE: 3 views of the knee were acquired. COMPARISON: [facility] [place], [place], XR KNEE ARTHRITIC SERIES , 07/19/2018, 14:43. FINDINGS: Bones: No acute fracture or dislocation identified. Severe joint space narrowing and spurring at the lateral compartment, mild joint space narrowing and spurring at the medial and patellofemoral compartments. Soft tissues: No joint effusion. No suspicious soft tissue calcifications. IMPRESSION: Degenerative changes of the knee, severe at the lateral compartment. Dictated by: Lake Smith M.D. on 02/25/2023 at 17:53 Approved by: Lake Smtih M.D. on 02/25/2023 at 17:55
--- NOTE | 2023-02-25 14:50 | DI.RAD.S_ITS ---
PROCEDURE: XR LUMBAR SPINE 2-3V INDICATIONS: low back pain TECHNIQUE: 3 views of the lumbar spine were acquired. COMPARISON: None. FINDINGS: Bones: 5 [id number] vertebrae are present. There is normal bony alignment. Mild, approximately 20? of convex left thoracolumbar spine scoliosis. No vertebral body compression fractures. No suspicious bony lesions. Moderate degenerative disc disease throughout the lumbar spine. Moderate L2-L3, L3-L4, L4-L5 and L5-S1 facet arthropathy. Mild L1-L2 facet arthropathy. Partially visualized right hip arthroplasty. Soft tissues: Overlying bowel gas pattern is normal. No suspicious soft tissue calcifications. IMPRESSION: 1. Multilevel degenerative disc disease. 2. Multilevel facet arthropathy. 3. No fracture. No acute osseous lesion. If symptoms and/or clinical suspicion for pathology persists, evaluation with MRI should be considered for further assessment. 4. Convex left scoliosis. Dictated by: Yulissa Archuleta MD, PhD on 02/25/2023 at 16:03 Approved by: Yulissa Archuleta MD, PhD on 02/25/2023 at 16:05
[2023-02-25 16:52] LABS: Aspartate Aminotransferase 26 IU/L (14-36); BUN Creatinine Ratio 14.4 (6-22); Blood Urea Nitrogen 15 mg/dL (7-17); Calcium 9.1 mg/dL (8.4-10.2); Carbon Dioxide 26 mmol/L (22-32); Chloride 104 mmol/L (98-107); Cholesterol 247 mg/dL (140-199); Estimated Glomerular Filt Rate 58 mL/min (>60); Glucose 96 mg/dL (80-110); HDL Cholesterol 70 mg/dL (40-60); HEMOLYSIS < 15 (0-50); LDL Cholesterol Calculated 147 mg/dL (<100); Potassium 4.3 mmol/L (3.4-5.1); Sodium 136 mmol/L (137-145); Triglycerides 148 mg/dL (35-150)
== END ==
PROVIDERS: PCP Internal Medicine; Referring Provider Internal Medicine; Visit Provider Internal Medicine
DX: E78.2 Mixed hyperlipidemia (principal); M15.9 Polyosteoarthritis, unspecified; M51.9 Unspecified thoracic, thoracolumbar and lumbosacral intervertebral disc disorder; N95.1 Menopausal and female climacteric states; M51.36 Other intervertebral disc degeneration, lumbar region; M47.816 Spondylosis without myelopathy or radiculopathy, lumbar region; M41.86 Other forms of scoliosis, lumbar region
CPT/HCPCS: 36415; 72100; 73562; 80048; 80061; 84450

== ENCOUNTER → 2024-05-24 16:10 | Outpatient (CLI) | payer MEDICARE, SELFPAY ==
[2021-09-26 14:14] VITALS: BMI 22.9
[2024-05-24 17:20] LABS: Aspartate Aminotransferase 31 IU/L (14-36); BUN Creatinine Ratio 18.4 (6-22); Blood Urea Nitrogen 16 mg/dL (7-17); Calcium 9.4 mg/dL (8.4-10.2); Carbon Dioxide 26 mmol/L (22-32); Chloride 105 mmol/L (98-107); Cholesterol 260 mg/dL (140-199); Estimated Glomerular Filt Rate > 60 mL/min (>60); Glucose 79 mg/dL (80-110); HDL Cholesterol 81 mg/dL (40-60); HEMOLYSIS < 15 (0-50); LDL Cholesterol Calculated 141 mg/dL (<100); Sodium 136 mmol/L (137-145); Triglycerides 191 mg/dL (35-150)
== END ==
PROVIDERS: PCP Internal Medicine; Referring Provider Internal Medicine; Visit Provider Internal Medicine
DX: E78.2 Mixed hyperlipidemia (principal); M15.9 Polyosteoarthritis, unspecified
CPT/HCPCS: 36415; 80048; 80061; 84450